=== PATIENT | male | born 1960 | race Caucasian/White ===

== ENCOUNTER → 2016-10-26 | Outpatient (CLI) | payer OTHER ==
[~2016-10-26] MED LIST: CELEXA20 MG PO; FLONASE 0.05% N16 GM; LISINOPRIL40 MG PO; LOPRESSOR50 MG PO; NEURONTIN 300300 MG PO; NORVASC 5 MG TAB5 MG PO; PROTONIX 40 MG40 M1 PO; SIMVASTATIN20 MG PO; TYLENOL 325MG325 MG PO; ZANAFLEX4 MG PO
== END ==
LOC: EMI 07:43
DX: M54.5 Low back pain (principal)
CPT/HCPCS: 72148

== ENCOUNTER 2020-09-09 20:49 | Emergency (ER) | payer OTHER ==
[~2020-09-09 20:49] MED LIST changes: +ZITHROMAX250 MG PO
== END 2020-09-10 01:30 | disposition home or self-care (01) ==
LOC: ER1 20:49
DX: S90.822A Blister (nonthermal), left foot, initial encounter (principal); S90.821A Blister (nonthermal), right foot, initial encounter; X12.XXXA Contact with other hot fluids, initial encounter
CPT/HCPCS: 99283